=== PATIENT | female | born 1930 | race Caucasian/White ===

== ENCOUNTER → 2016-11-03 | Outpatient (CLI) | payer MEDICARE, OTHER ==
[~2016-11-03] MED LIST: CITALOPRAM20 MG PO; DOCUSATE SODIU100 M2 PO; ESOMEPRAZOLE MA40 M1 PO; Synthroid,Levo25 MCG PO; VALSARTAN80 MG PO; VESICARE5 MG PO; XANAX0.5 MG PO
[2016-11-03 12:35] LABS: BASO % 0.2 % (0.0-1.0); EOS % 0.3 % (1.0-4.0); HEMATOCRIT 42.6 % (37.0-47.0); HEMOGLOBIN 13.9 g/dl (12.0-16.0); LYMPH # 0.8 10*3/uL (1.3-4.4); LYMPH % 14.1 % (27.0-41.0); MEAN CORPUSCULAR HGB CONC 32.6 g/dl (33.0-37.0); MEAN PLATELET VOLUME 9.7 fl (9.6-12.3); MONO # 0.5 10*3/uL (0.1-1.0); MONO % 8.7 % (3.0-9.0); NEUT # 4.4 10*3/uL (2.3-7.9); PLATELET COUNT AUTOMATED 233 10*3/uL (130-400); RED BLOOD COUNT 4.63 10*6/uL (4.10-5.10); RED CELL DISTRI WIDTH 14.7 % (0-14.5); WHITE BLOOD COUNT 5.8 10*3/uL (4.8-10.8)
== END | disposition home or self-care (01) ==
LOC: LAB 11:04
PROVIDERS: Obstetrics & Gynecology
DX: N89.8 Other specified noninflammatory disorders of vagina (principal)

== ENCOUNTER → 2016-11-09 | Day surgery (SDC) | payer MEDICARE, OTHER ==
[~2016-11-09] VITALS: Ht 165.1 cm; Wt 68.0 kg
--- NOTE | ~2016-11-09 | O ---
[place], [place] OPERATIVE NOTE NAME: EDWIN LARSON UNIT #: [id number] ROOM: DOCTOR: AIMEE ORDONEZ MD BIRTHDATE: [birth year] DOS: 11/09/2016 PREOPERATIVE DIAGNOSES: Recurrent vaginal bleeding and velvety abnormal set of mucosal lesions in the posterior upper vagina. POSTOPERATIVE DIAGNOSES: Recurrent vaginal bleeding and velvety abnormal set of mucosal lesions in the posterior upper vagina. OPERATION: Excision of the large posterior vaginal mucosal lesions. SURGEONS: Aimee Ordonez and Dr. Rocha. ANESTHESIA: General. ESTIMATED BLOOD LOSS: Less than 30 mL. REPLACEMENTS: IV fluids and Toradol. COMPLICATIONS: There were no complications. CONDITION: The patient's condition to recovery stable. OPERATIVE SUMMARY: The patient was taken to the operating room in supine position. General anesthesia with airway management followed by lithotomy position and placement. She was prepped and draped in routine manner. An exam under anesthesia this velvety lesion covering the upper, almost entirety of the upper posterior vaginal mucosa as well as one other lesion that looked almost like a mucosal skin tag from her previous hysterectomy in the right corner of the cuff. These lesions were elevated and excised in a fairly superficial manner, making sure we did not penetrate the vaginal mucosa into the rectum or even potentially into the posterior cul-de-sac. Once all lesions had been removed, we cauterized slightly in several places and then we closed these defects with several interrupted and running 3-0 chromic sutures. Good hemostasis was achieved. The patient was cleaned off and observed for a few moments and again, there was no bleeding noted. We then cleaned the patient off otherwise, took her out of lithotomy position, awakened her and transferred her to recovery in satisfactory condition. Her sponge and instrument count was stable. Her hemostasis was good and her vital signs were stable. [place], [place] OPERATIVE NOTE NAME: NEO,ERVIRGILIO Walton UNIT #: [id number] ROOM: DOCTOR: AIMEE ORDONEZ MD BIRTHDATE: [birth year] AIMEE ORDONEZ MD CM:OPRECORD:OPERATIVE NOTE [id number] VERONICA ORDONEZ MD 11/09/16 1118 interface
--- NOTE | ~2016-11-09 | WRIGHTHP ---
[place], [place] PATIENT HISTORY AND PHYSICAL EXAM NAME: EDWIN LARSON [facility] #: [id number] UNIT #: [id number] ROOM: DOCTOR: AIMEE ORDONEZ MD BIRTHDATE: [birth year] DOS: 11/09/2016 HISTORY OF PRESENT ILLNESS: An 86-year-old white female 1, para 1, who has been followed by me over the last better part of the year for a number of different issues, but in this particular situation, a velvety posterior vaginal lesion which is highly suspicious. The patient presented as I say about a year ago give or take at which time, this lesion was noted and I have biopsied on several occasions and the worst case scenario is VAIN 1. The patient is status post hysterectomy. The patient presented to the office on 10/27/2016 with another complaint thinking that her bladder might have dropped. On examination, there really was no cystocele at all, but she did have a first to second degree rectocele. She does continue to maintain adequate bowel function. What was most concerned to me that this velvety lesion or set of lesions that were previously biopsied seem to have increased and still appear suspicious to me despite what the previous biopsies showed in March and April. I reviewed the situation with the patient and her and felt that excision of this entire lesion was in order for diagnosis as well as for making sure that we are not missing a vaginal malignancy. To that end, the risks, benefits, indications, potential complications, and alternatives of outpatient surgery and excision of this lesion under anesthesia were given, understanding stated and consent signed. PAST MEDICAL HISTORY: Reveals history of hypertension, hypothyroidism, and anxiety. She has had 1 , 1 vaginal delivery. She has had a history of kidney surgery, parathyroid surgery. She has a history of fractured ankle and surgical correction. She has had carpal tunnel surgery, small-bowel obstruction secondary to adhesions, segmental bowel resection with primary anastomosis in 2016. She has had a hysterectomy many years ago. She has also had a bilateral salpingo-oophorectomy, this all in 1971. She has had a colonoscopy within the last 5 years with no polyps noted. SOCIAL HISTORY: She does not smoke or drink. MEDICATIONS: She is taking medications including VESIcare 5 mg daily for overactive bladder, Xanax 0.5 mg daily for anxiety, Synthroid 50 mcg daily for hypothyroidism, Diovan 80 mg daily for hypertension and finally, Celexa 20 mg daily for anxiety. REVIEW OF SYSTEMS: Stable. FAMILY HISTORY: Noncontributory in this situation. PHYSICAL EXAMINATION: GENERAL: Reveals a somewhat frail but pleasant white female in no significant distress. VITAL SIGNS: She is 5 feet 5 inches, 152 pounds, BMI is 25.3. O2 sat is 97%. Her blood pressure in the office was 148/86. HEENT: Stable. NECK: Stable. LUNGS: Stable. [place], [place] PATIENT HISTORY AND PHYSICAL EXAM NAME: EDWIN LARSON UNIT #: [id number] ROOM: DOCTOR: AIMEE ORDONEZ MD BIRTHDATE: [birth year] CARDIAC: Stable. BREASTS: Stable. ABDOMEN: Stable. EXTREMITIES: Grossly intact. NEUROLOGIC: Grossly intact. GENITOURINARY: External genitalia, normal vagina. Vaginal exam has been noted above. Bimanual exam otherwise negative. RECTAL: Deferred. ASSESSMENT: The patient with an increasing posterior upper vaginal lesion of undetermined significance. PLAN: The patient will undergo a wide excision of this vaginal lesion on 11/09/2016. AIMEE ORDONEZ MD CM:HISPHYS:PATIENT HISTORY AND PHYSICAL EXAMINATION [id number] VERONICA ORDONEZ MD 11/04/16 0614 interface
[2016-11-09 08:39] VITALS: BP 190/86
[2016-11-09 10:24] VITALS: BP 212/94
[2016-11-09 10:40] VITALS: BP 189/73
[2016-11-09 10:55] VITALS: BP 176/81
[2016-11-09 11:10] VITALS: BP 171/81
[2016-11-09 11:25] VITALS: BP 167/78
== END | disposition home or self-care (01) ==
LOC: SDC 11-03 11:00
DX: D28.1 Benign neoplasm of vagina (principal); I10 Essential (primary) hypertension; E03.9 Hypothyroidism, unspecified; F41.9 Anxiety disorder, unspecified; Z98.890 Other specified postprocedural states; Z90.710 Acquired absence of both cervix and uterus; Z79.899 Other long term (current) drug therapy; K21.9 Gastro-esophageal reflux disease without esophagitis; F32.9 Major depressive disorder, single episode, unspecified

== ENCOUNTER 2017-07-04 10:51 | Emergency (ER) | payer MEDICARE, OTHER ==
[~2017-07-04] VITALS: Ht 152.4 cm; Wt 73.5 kg
[2017-07-04] MEDS ORDERED: Motrin,Rufen800 MG PO (12:12)
== END 2017-07-04 12:24 | disposition home or self-care (01) ==
LOC: ED 10:51
DX: M25.462 Effusion, left knee (principal); Z90.710 Acquired absence of both cervix and uterus; Z90.49 Acquired absence of other specified parts of digestive tract; Z98.41 Cataract extraction status, right eye; Z79.899 Other long term (current) drug therapy